=== PATIENT | female | born 1975 | race Two or more races ===

== ENCOUNTER 2017-04-27 05:34 | Day surgery (SDC) | payer OTHER ==
[2017-04-26 09:01] LABS: HEMOGLOBIN 10.9 g/dL (11.7-16.4); WHITE BLOOD COUNT 8.4 x10^3/uL (3.4-10)
[2017-04-26 09:12] LABS: PATH.CAST-FLAG NOT PRESENT; SPERM-FLAG NOT PRESENT; SRC-FLAG NOT PRESENT; XTAL-FLAG NOT PRESENT; YLC-FLAG NOT PRESENT
[2017-04-26 09:14] LABS: ASPARTATE AMINO TRANSFERASE 62 U/L (15-37); BLOOD UREA NITROGEN 12 mg/dL (7-18)
[~2017-04-27] VITALS: Ht 157.5 cm; Wt 94.5 kg
[~2017-04-27 05:34] MED LIST: GLIP10TA13 PO; IBUP200T64 PO; METF500T4 PO
[2017-04-27] MEDS ORDERED: LACTATED RINGERS 1,000 ML IV SCH (06:10)
[2017-04-27] MEDS ORDERED: EPINEPHRINE 1 MG/ML, 1ML ONE (06:19)
[2017-04-27] MEDS ORDERED: FLUORESCEIN SODIUM 500 MG/5 ML ONE (06:19)
[2017-04-27] MEDS ORDERED: LIDOCAINE/PF 1%, 30ML ONE (06:19)
[2017-04-27 06:37] VITALS: BP 154/92
[2017-04-27] MEDS ORDERED: FENTANYL PF 100 MCG/2ML ONE ×3 (06:48→09:02)
[2017-04-27] MEDS ORDERED: MIDAZOLAM 1 MG/ML, 2ML ONE (06:48)
[2017-04-27] MEDS ORDERED: KETOROLAC 30 MG/1 ML ONE (07:00)
[2017-04-27] MEDS ORDERED: METRONIDAZOLE PMX 500MG/100ML 100 ML ONE (07:20)
[2017-04-27] MEDS ORDERED: EPHEDRINE 50 MG/ML, 1ML IVPush PRN (07:30)
[2017-04-27] MEDS ORDERED: ALBUTEROL SULFATE 2.5 MG/3 ML NPPB PRN (07:30)
[2017-04-27] MEDS ORDERED: hydrALAzine 20 MG/ML, 1ML IV PRN (07:30)
[2017-04-27] MEDS ORDERED: METOPROLOL 1 MG/ML, 5ML IV PRN (07:30)
[2017-04-27] MEDS ORDERED: DIAZEPAM 5 MG/ML, 2ML IVPush PRN (07:30)
[2017-04-27] MEDS ORDERED: HYDROmorphone 1 MG/ML, 1ML IV PRN (07:30)
[2017-04-27] MEDS ORDERED: MEPERIDINE/PF 25MG/0.5ML IVPush PRN (07:30)
[2017-04-27] MEDS ORDERED: ACETAMINOPHEN 325 MG TABLET PO PRN (07:30)
[2017-04-27] MEDS ORDERED: HYDROcodone/APAP 7.5-325MG/15ML UDC PO PRN (07:30)
[2017-04-27] MEDS ORDERED: MIDAZOLAM 1 MG/ML, 2ML IV PRN (07:30)
[2017-04-27] MEDS ORDERED: ONDANSETRON 2MG/ML, 2ML IVPush PRN (07:30)
[2017-04-27] MEDS ORDERED: PROMETHAZINE 25 MG/ML, 1ML IV PRN (07:30)
[2017-04-27] MEDS ORDERED: NEOSTIGMINE 1 MG/ML, 10ML ONE (07:39)
[2017-04-27] MEDS ORDERED: ONDANSETRON 2MG/ML, 2ML ONE ×2 (07:39→15:19)
[2017-04-27] MEDS ORDERED: SUCCINYLCHOLINE 20 MG/ML, 10ML ONE (07:39)
[2017-04-27] MEDS ORDERED: ROCURONIUM 10 MG/ML,10ML ONE (07:39)
[2017-04-27] MEDS ORDERED: GLYCOPYRROLATE 0.2MG/1ML, 5ML ONE (07:39)
[2017-04-27] MEDS ORDERED: PROPOFOL 10 MG/ML, 20ML ONE (07:39)
[2017-04-27] MEDS ORDERED: CEFOTETAN PMX 2GM/50ML 50 ML ONE (07:40)
[2017-04-27] MEDS ORDERED: OXYcodone 5 MG/5 ML ORAL.SOL UDC ONE ×2 (09:02→09:50)
[2017-04-27] MEDS ORDERED: ACETAMINOPHEN 325 MG TABLET ONE (09:02)
[2017-04-27] MEDS ORDERED: MEPERIDINE/PF 25MG/0.5ML ONE (09:02)
[2017-04-27] MEDS: OXYcodone 5 MG/5 ML ORAL.SOL UDC PO PRN ×2 (09:05→09:51)
[2017-04-27] MEDS: FENTANYL PF 100 MCG/2ML IV PRN ×4 (09:20→09:52)
[2017-04-27] MEDS ORDERED: LABETALOL 5MG/ML, 20ML ONE (09:25)
[2017-04-27] MEDS: LABETALOL 5MG/ML, 20ML IV PRN ×3 (09:26→09:44)
[2017-04-27] MEDS ORDERED: HYDROmorphone 2 MG/ML, 1ML ONE (14:14)
== END 2017-04-27 16:40 | disposition home or self-care (01) ==
LOC: OUT 05:34
PROVIDERS: ATTEND Obstetrics & Gynecology Gynecology
DX: N92.0 Excessive and frequent menstruation with regular cycle (principal); N94.6 Dysmenorrhea, unspecified; D25.9 Leiomyoma of uterus, unspecified; N81.5 Vaginal enterocele; E11.9 Type 2 diabetes mellitus without complications; I10 Essential (primary) hypertension
CPT/HCPCS: 36415; 52000; 58270; 80053; 81001; 82962; 84703; 85014; 85025; 87077; 87086; 87186; 88307; 93005; J0171; J0330; J1885; J2175; J2250; J2405; J2704; J2710; J3010; J3490; J7120; S0074